=== PATIENT | male | born 1965 | race African-American/Black ===

== ENCOUNTER 2020-05-21 08:46 | Outpatient (CLI) | payer BC, SELFPAY ==
--- NOTE | 2020-05-21 09:11 | ECG_ITS ---
Measurements Intervals [place] Rate: 94 P: 58 MA: 175 QRS: 7 QRSD: 113 T: -2 QT: 365 QTc: 456 Interpretive Statements SINUS RHYTHM INTRAVENTRICULAR CONDUCTION DELAY DELAYED PRECORDIAL R/S TRANSITION BORDERLINE T WAVE ABNORMALITY- ANTEROLAT/INF LEADS BASELINE ARTIFACT- I, AVL BORDERLINE ECG Electronically Signed On 05-21-2020 9:23:32 AIR TRAFFIC CONTROL SUPERVISOR by Alex Dunn D.O.
[2020-05-21 09:21] LABS: Basophils Percent Auto 0.5 % (0.2-1.2); Eosinophils Absolute Auto 0.1 K/mm3 (0-0.3); Eosinophils Percent Auto 1.2 % (0-4.4); Hematocrit 40.9 % (42.0-52.0); Hemoglobin 13.8 g/dL (14.0-18.0); Immature Granulocyte Absolute 0.03 K/mm3 (0.00-0.031); Immature Granulocyte Percent A 0.4 % (0-0.5); Lymphocytes Absolute Auto 1.98 K/mm3 (0.9-3.2); Lymphocytes Percent Auto 26.3 % (18.3-44.2); Mean Corpuscular HGB Conc 33.7 g/dl (32-36); Mean Corpuscular Hemoglobin 28.5 pg (26-34); Mean Corpuscular Volume 84.5 fl (80-100); Mean Platelet Volume 9.8 fl (7.4-10.4); Monocytes Absolute Auto 0.5 K/mm3 (0.1-0.6); Monocytes Percent Auto 6.3 % (2.6-8.5); Neutrophils Absolute Auto 4.9 K/mm3 (1.3-6.7); Neutrophils Percent Auto 65.3 % (45.5-73.1); Platelet Count Result 281 k/mm3 (150-375); Red Blood Count 4.84 M/mm3 (4.6-6.20); Red Cell Distribution Width 13.1 % (11.5-14.5); White Blood Count 7.5 K/mm3 (4.5-10.0)
[2020-05-21 09:34] LABS: Anion Gap 5 mmol/L (8-16); Blood Urea Nitrogen 17 mg/dL (9-20); Calcium 8.6 mg/dL (8.4-10.2); Carbon Dioxide 32 mmol/L (22-30); Chloride 102 mmol/L (98-107); Estimated Glomerular Filt Rate > 60; Glucose 142 mg/dL (75-110); Potassium 3.4 mmol/L (3.4-5.0); Sodium 139 mmol/L (137-145)
== END 2020-05-21 08:47 | disposition home or self-care (01) ==
LOC: ANHLAB 08:51
PROVIDERS: PCP Family Medicine; Visit Provider Surgery
DX: Z01.818 Encounter for other preprocedural examination (principal); I10 Essential (primary) hypertension; I45.9 Conduction disorder, unspecified
CPT/HCPCS: 36415; 80048; 85025; 93005

== ENCOUNTER 2020-05-27 03:57 | Outpatient (CLI) | payer BC, SELFPAY ==
[2020-05-27 16:31] LABS: SARS-CoV-2 RNA PCR Positive
== END 2020-05-27 03:58 | disposition home or self-care (01) ==
LOC: ANHCOVIDDT 03:58
PROVIDERS: PCP Family Medicine; Visit Provider Surgery
DX: U07.1 COVID-19 (principal); Z01.812 Encounter for preprocedural laboratory examination
CPT/HCPCS: C9803; U0003; U0005

== ENCOUNTER 2020-06-26 01:30 | Day surgery (SDC) | payer BC, SELFPAY ==
[2020-05-20 16:35] VITALS: BMI 33.9
--- NOTE | 2020-06-19 14:15 | PC.NURSE ---
PT DENIES ANY CHANGE IN HEALTH OR MEDICATION SINCE INTERVIEW.
--- NOTE | 2020-06-25 09:12 | PM.SD2 ---
Same Day Admit/Disch: HPI History of Present Illness Chief complaint: Righ Inguinal Hernia Narrative: Niranjan Manzo is a 55 year old male who has had a painful right inguinal bulge for well over a year. This is painful with activity. Particularly notice it is painful when he mows his grass. He was seen in the office and is taken to surgery now for repair of a right inguinal hernia. He also gets up to urinate about 3 or 4 times a night and has been started on Flomax a week prior to surgery to hopefully avoid postoperative urinary retention. [facility] Past Medical History Medical History Benign essential HTN History of hypertension Hyperlipidemia Right inguinal hernia Family History Family History Other Diabetes mellitus Hypertension Social History Social History Social History: Smoking status: Never smoker Second hand tobacco smoke exposure: No Alcohol intake: former Substance use: never Substance use type: does not use Living arrangements: with family Gender identity (if verbalized by the patient): Male Spiritual care concerns: No Same Day Admit/Disch: Med Pre-admit Medications Home Medications Medication Instructions Recorded Confirmed Type amlodipine 10 mg-benazepril 20 mg 1 cap PO DAILY #30 cap 04/03/20 06/13/20 Rx capsule atorvastatin 10 mg tablet 10 mg PO DAILY #30 tablet 04/25/20 06/13/20 Rx furosemide 20 mg tablet 20 mg PO QAM #30 tablet 05/29/20 06/26/20 Rx tamsulosin 0.4 mg capsule See Rx Instructions .ROUTE 05/29/20 06/26/20 Rx .COMPLEX #30 cap hydralazine 10 mg tablet 20 mg PO BID #120 tablet 06/05/20 06/26/20 Rx hydrocodone-acetaminophen 1 - 2 tablet PO Q6H PRN #10 tablet 06/26/20 Rx ketorolac 10 mg PO Q6H 4 Days #16 tablet 06/26/20 Rx Exam Const: General: comfortable, no acute distress, alert and awake HENMT: Head: normocephalic and atraumatic Mouth: Yes Normal oral and palatal mucosa present Eyes: Conjunctivae: conjunctivae normal Pupils: Equal, round and reactive pupils present EOM: EOMs intact bilaterally Neck: Neck: normal visual inspection, no lymphadenopathy and nontender Resp: Effort & Inspection: normal respiratory effort Auscultation: clear to auscultation bilaterally Cardio: Rate: regular rate Rhythm: regular rhythm Heart sounds: no gallops, no murmurs and no rubs GI: Inspection: non-distended GI Palp: Yes Soft to palpation, No Tenderness to palpation present (GI), No Hepatomegaly present and No Splenomegaly present : Male General Exam: Yes hernia (Right inguinal bulge, large, pulses with cough) Penis: Yes normal penis Scrotum: testes descended bilaterally and scrotal swelling on the right (Right inguinal hernia extends into the upper scrotum) Testes: Testes normal Skin: Lesions: no lesions Rashes: no rashes Neuro: General: no focal motor deficits and CN's II-XI intact bilaterally Cranial nerves: Yes Equal, round and reactive pupils present, Yes Bilaterally intact EOM present, Yes facial symmetry and Yes Midline tongue present Speech: normal speech Motor exam (neuro): 5/5 motor strength present throughout and Motor abnormalities not present Extrem: General: no clubbing, cyanosis or edema and edema Psych: Affect: normal affect Thought process: Normal thought process present Insight: Good insight present (Psych) DS: Summary Time Spent with Patient Time attestation: Total time spent providing and/or coordinating discharge services: DS: Admitting Diagnosis Admitting Diagnosis Admitting Diagnosis: Symptomatic, reducible right inguinal hernia-plan to repair as an outpatient under local mac anesthesia. The procedure the risks the benefits have been discussed with the patient. All questions were answered. The usual recovery has been discussed. He understands and agrees
[2020-06-26] MEDS: LACTATED RINGERS 1,000 ML 30 ML IV CONT ×2 (06:58→10:45)
[2020-06-26] MEDS: ACETAMINOPHEN 500 MG TABLET 1000 MG PO (06:59)
[2020-06-26] MEDS: KETOROLAC 15 MG/ML VIAL (*BKC) IV PUSH (07:00)
[2020-06-26 07:05] VITALS: BP 113/77; PULSE 69; RESP 16; TEMP 37.1; O2SAT 100
--- NOTE | 2020-06-26 07:30 | WPDANESEPPF ---
Anes - Initial Pre Proc Eval Procedure: Operation Date: 06/26/20 08:30 Proposed Procedures p Right Inguinal Hernia Repair - Ilya Galeano MD Date/Time: 06/26/20 07:30 Surgeon: Ilya Galeano MD Pre Op Diagnosis: Righ Inguinal Hernia Patient Data Age: 55 Gender: M Height: 6 ft Weight: 111.5 kg Last Vital Signs Temp 98.7 F 06/26/20 07:05 Pulse 69 06/26/20 07:05 Resp 16 06/26/20 07:05 BP 113/77 06/26/20 07:05 Pulse Ox 100 06/26/20 07:05 Allergies Allergy/AdvReac Type Severity Reaction Status Date / Time No Known Allergies Allergy Verified 06/26/20 06:11 Home Medications Medication Instructions Recorded Confirmed Type amlodipine 10 mg-benazepril 20 mg 1 cap PO DAILY #30 cap 04/03/20 06/13/20 Rx capsule atorvastatin 10 mg tablet 10 mg PO DAILY #30 tablet 04/25/20 06/13/20 Rx furosemide 20 mg tablet 20 mg PO QAM #30 tablet 05/29/20 06/26/20 Rx tamsulosin 0.4 mg capsule See Rx Instructions .ROUTE 05/29/20 06/26/20 Rx .COMPLEX #30 cap hydralazine 10 mg tablet 20 mg PO BID #120 tablet 06/05/20 06/26/20 Rx Patient hx anesthesia problems: none Family hx anesthesia problems: none PMFSH Past Medical History Medical History Benign essential HTN History of hypertension Hyperlipidemia Right inguinal hernia Family History Family History Other Diabetes mellitus Hypertension Social History Social History Social History: Smoking status: Never smoker Second hand tobacco smoke exposure: No Alcohol intake: former Substance use: never Substance use type: does not use Living arrangements: with family Gender identity (if verbalized by the patient): Male Spiritual care concerns: No Anes - Eval Final PreProcedure Day of Procedure 06/26/20 07:30 Patient weight: obese Heart: regular rate and rhythm Lungs: clear to auscultation Airway: Mallampati scale class III Neurological: alert and oriented Last oral intake: >/= 8 hours ASA classification: III Emergent: no Anesthetic plan: proceed Anesthesia type and monitoring: general GIVS and standard monitoring Informed Consent: The patient's anesthetic plan and its attendant risks and benefits were discussed with the patient/family/POA. Questions were solicited and answers provided to the satisfaction of the patient/family/POA.
--- NOTE | 2020-06-26 07:42 | WPDHPUPDATE1 ---
History and Physical Update Update Date/Time: 06/26/20 07:42 History and Physical has been reviewed, including an updated exam of the patient. There are NO changes in the patient's condition. Risks, benefits, and alternatives have been discussed and questions answered. Patient agrees to proceed with procedure.
[2020-06-26] MEDS: ceFAZolin 2 GM/D5W 50 ML 2 GM/50 ML BAG IVPB (08:47)
[2020-06-26] MEDS: BUPIVACAINE HCL 0.5% PF 30 ML VIAL 10 ML INFILTRATE (09:02)
[2020-06-26 10:45] VITALS: BP 104/51; PULSE 71; RESP 16
--- NOTE | 2020-06-26 11:01 | PM.PROC ---
Procedure Note - Detailed Date of procedure: 06/26/20 Pre-op diagnosis: Righ Inguinal Hernia Right inguinal hernia Post-op diagnosis: same (Indirect hernia) Procedure performed: Repair of right inguinal hernia with 8 cm Parietex hernia mesh system Description of procedure: The patient was taken to surgery and IV sedation was administered. The right groin and genitalia were prepped and draped. Proposed incision was marked on the skin. Local was infiltrated into the skin and the deeper subcutaneous tissues. Incision was made and deepened through the subcutaneous. Crossing veins were cauterized and divided. Dissection was carried through Marques's fascia down to the external oblique aponeurosis. The aponeurosis was exposed as was the external ring. Additional local anesthesia was infiltrated deep to the aponeurosis in the area of the spermatic cord and inguinal canal contents. The aponeurosis was opened laterally and extended medially through the external ring. The leaves of the aponeurosis were dissected free from the spermatic cord. The ileoinguinal nerve was carefully preserved throughout the dissection and was left attached to the spermatic cord. The cord was then mobilized medially on a Dawson drain. The cord was dissected back to the internal ring. Dissection was then carried out in the anteromedial spermatic cord. The hernia sac was found and dissected. The hernia sac and its contents were quite large. It was intimately associated with the spermatic cord. There was a lot of lipomatous tissue in the cord as well. Dissection of the hernia sac was difficult due to its chronicity and large size. With a combination of blunt and sharp dissection, however, I was able to dissect the sac back to the internal ring and to a high dissection. I then reduced the hernia into the abdomen. This was difficult due to the large size of the hernia and a relatively smaller opening in the internal ring. Once it was reduced, I placed a Ray-Jacqueline sponge in the internal ring to keep it in position. I then set about dissecting free the lipomatous tissue and some cremasteric fibers that were an obstacle to creating a good repair. The spermatic cord was fully mobilized and skeletonized. Blood supply to the right testicle was carefully preserved. Eventually enough of the distorted inguinal canal tissues were either removed or dissected such that the repair could be done effectively. An 8 centimeter Parietex [place] was chosen. It was folded to form a plug. It was placed in the defect. The edges were sutured to the transversalis fascia with interrupted 3 0 Vicryl suture. The hernia defect was then partially closed with some additional 3 0 Vicryl suture. Patch was then cut to the appropriate size and placed over the inguinal canal floor. The lateral leaves were passed beyond the cord. The cord and ileoinguinal nerve were then laid over the patch. The external oblique aponeurosis was closed with interrupted 3 0 Vicryl suture. Marques's fascia was closed with interrupted 3 0 Vicryl suture. The subcutaneous was closed with interrupted 4 0 Vicryl suture. Four 0 Vicryl subcuticular skin sutures were placed. The skin was closed finally with a running 4 0 Monocryl skin suture. The wound was dressed with Exofin surgical adhesive. The patient was awakened and taken to recovery in good condition. Sponge and needle counts were correct x2. Implants: 8 cm Parietex hernia repair system Anesthesia: MAC and local (0.5% Marcaine with Exparel) Surgeon: Ilya Galeano MD Pararescue Craftsman: Mari GONZALEZ Estimated blood loss (mL): 5 Drains: No Packing: No Pathology: none sent Complications: None Condition: stable Disposition: PACU Findings: Large indirect inguinal hernia. No sliding hernia was noted.
[2020-06-26 11:34] VITALS: BP 95/64; PULSE 52; RESP 18
[2020-06-26] MEDS: oxyCODONE HCL (*CRX) 5 MG TAB IR PO (11:48)
[2020-06-26 12:00] VITALS: BP 112/79; PULSE 46; RESP 18
[2020-06-26 12:15] VITALS: BP 111/82; PULSE 47; RESP 18
== END 2020-06-26 12:23 | disposition home or self-care (01) ==
PROVIDERS: PCP Family Medicine; Visit Provider Surgery
PROC: (CPT 49505; principal; 2020-06-26 08:30)
DX: K40.90 Unilateral inguinal hernia, without obstruction or gangrene, not specified as recurrent (principal); R35.1 Nocturia; I10 Essential (primary) hypertension; E78.5 Hyperlipidemia, unspecified
CPT/HCPCS: 49505; A9270; C1781; C9290; J0690; J1885; J2250; J2405; J2704; J3010; J7120

== ENCOUNTER 2020-06-30 19:53 | Emergency (ER) | payer BC, SELFPAY ==
--- NOTE | ~2020-06-30 | CT_ITS ---
EXAMINATION: CT abdomen pelvis w con EXAM DATE: 06/30/2020 21:02 INDICATION: Post surgery swelling , right groin pain. TECHNIQUE: Spiral CT of the abdomen and pelvis was performed following intravenous injection of 100 m L Omnipaque 350. Axial, coronal and sagittal images were reviewed. The dose-length product (DLP) fo r this examination was 1469.61 mGy-cm. The exposure was tailored according to patient size (auto mA exposure control), and iterative reconstruction (ASIR) was used as additional dose reduction techniqu e. There is no prior study for comparison. FINDINGS: There is inflammation in the right inguinal canal, with some tiny foci of gas present consi stent with recent surgery. Deep to this in the right lower quadrant there is a circumscribed region o f fat measuring about 7 x 5 cm, with swirled appearance, twisting of the vascularity within, could be sizable region of twisted omentum or other intra-abdominal fat and/or early fat necrosis. Contiguous and immediately lateral to this is a small pocket of gas and fluid measuring about 2 x 3 cm. Gonadal vasculature is also contiguous to both of these described findings. Focal left-sided skin thickening , could be a trocar insertion site. The liver, spleen, adrenal glands and pancreas are unremarkable. Gallbladder is unremarkable. No bi liary obstruction. Portal and splenic veins are patent. Kidneys enhance symmetrically. There is no hydronephrosis. The prostate is unremarkable. The bladder is unremarkable. There is no retroperi toneal or pelvic lymphadenopathy. There are no findings to suggest appendicitis. The stomach and small bowel are unremarkable. There is expected amount of colonic stool. No free intraperitoneal gas. The heart is normal in size. T here are no pericardial or pleural effusions. The lung bases are unremarkable. There are no osteobl astic or osteolytic lesions identified. IMPRESSION: 1. Right inguinal surgical changes, with some foci of gas, extensive inguinal inflammation and small gas fluid pocket deep to the canal. 2. Right lower quadrant circumscribed region of fat with twisted appearance, could be focal region o f twisted omentum or other intra-abdominal fat, developing fat necrosis. Reviewed, dictated and finalized at location A. IC PROCESS ENGINEER IMPRESSION: 1. Right inguinal surgical changes, with some foci of gas, extensive inguinal inflammation and small gas fluid pocket deep to the canal. 2. Right lower quadrant circumscribed region of fat with twisted appearance, c ould be focal region of twisted omentum or other intra-abdominal fat, developin g fat necrosis.
[2020-06-30 19:54] VITALS: BP 161/100; PULSE 84; RESP 16; TEMP 36.7; O2SAT 100
--- NOTE | 2020-06-30 19:58 | ED.GENADULT ---
HPI - General Adult General Chief complaint: Unspecified Stated complaint: swelling in groin, recent hernia surgery. Time Seen by Provider: 06/30/20 20:09 History of Present Illness HPI narrative: Patient is a 55-year-old gentleman who presents the emergency department with chief complaint of postoperative swelling. Patient had a inguinal hernia repair on the in our facility and the patient noticed today that his inguinal area and the scrotum was swollen up. Patient states he had no fever no drainage from the area and the patient was concerned states that he is really not having much pain in the area states that he was just concerned about the swelling. Patient denies difficulty urinating denies difficulty defecating. Related Data Allergies Allergy/AdvReac Type Severity Reaction Status Date / Time No Known Allergies Allergy Verified 06/26/20 06:11 Review of Systems Review of Systems: Narrative: A 10 system review of systems was completed on the patient and is negative except for what is stated in the HPI. Nursing and ancillary documentation was reviewed. [facility] Past Medical History Medical History Benign essential HTN History of hypertension Hyperlipidemia Right inguinal hernia Family History Family History Other Diabetes mellitus Hypertension Social History Social History Social History: Smoking status: Never smoker Second hand tobacco smoke exposure: No Alcohol intake: former Substance use: never Substance use type: does not use Gender identity (if verbalized by the patient): Male Spiritual care concerns: No Exam Narrative: Exam Narrative: GENERAL: Well-appearing, well-nourished, and in no acute distress. HEAD: Normocephalic, atraumatic. EYES: PERRLA and EOMI. ENT: Nares clear, no rhinorrhea or epistaxis. Mucous membranes moist. NECK: Supple. CHEST: Clear to auscultation. No respiratory distress. HEART: Regular rate and rhythm. No murmur heard. Normal peripheral pulses. ABDOMEN: Soft, nontender, nondistended, normal active bowel sounds. There is swelling in the right inguinal region at the location of a surgical incision the incision showing signs of healing without evidence of erythema without evidence of drainage or wound well approximated. There is swelling that is present in the scrotum. EXTREMITIES: Normal range of motion. No edema. SKIN: Warm, dry, no rash. NEURO: No focal deficits. Alert and oriented x3. PSYCH: Normal mood and affect. Course Course Emergency Course: Patient's laboratory studies showed a normal white blood cell count and normal lactic acid. CT scan of the abdomen pelvis showed inflammation in the inguinal canal region and also some of the fat in the area underneath the repair was showing some inflammation. The case was discussed with Dr. Lilly who is on-call for general surgery after review of the surgical record it was felt that this is most likely postoperative changes due to the difficulty of reducing the hernia. The patient is currently asymptomatic other than the swelling patient was instructed to keep the area clean do daily temperature checks twice daily. And to follow-up with Dr. Galeano Vital Signs Vital signs: Vital Signs Temperature 36.7 C 06/30/20 19:54 Pulse Rate 84 06/30/20 19:54 Respiratory Rate 16 06/30/20 19:54 Blood Pressure 161/100 H 06/30/20 19:54 Pulse Oximetry 100 06/30/20 19:54 Temperature 36.7 C 06/30/20 19:54 Pulse Rate 80 06/30/20 21:50 Respiratory Rate 18 06/30/20 21:50 Blood Pressure 130/91 H 06/30/20 21:50 Pulse Oximetry 99 06/30/20 21:50 Medical Decision Making Vital Signs Vital Signs: Vital Signs Temperature 36.7 C 06/30/20 19:54 Pulse Rate 84 06/30/20 19:54 Respiratory Rate 1
[2020-06-30 20:51] LABS: Basophils Absolute Auto 0.1 K/mm3 (0.0-0.1); Basophils Percent Auto 0.7 % (0.2-1.2); Eosinophils Absolute Auto 0.2 K/mm3 (0-0.3); Eosinophils Percent Auto 3.2 % (0-4.4); Hematocrit 37.3 % (42.0-52.0); Hemoglobin 12.6 g/dL (14.0-18.0); Immature Granulocyte Absolute 0.02 K/mm3 (0.00-0.031); Immature Granulocyte Percent A 0.3 % (0-0.5); Lymphocytes Absolute Auto 2.06 K/mm3 (0.9-3.2); Lymphocytes Percent Auto 27.7 % (18.3-44.2); Mean Corpuscular HGB Conc 33.8 g/dl (32-36); Mean Corpuscular Hemoglobin 29.2 pg (26-34); Mean Corpuscular Volume 86.5 fl (80-100); Mean Platelet Volume 9.5 fl (7.4-10.4); Monocytes Absolute Auto 0.6 K/mm3 (0.1-0.6); Monocytes Percent Auto 7.7 % (2.6-8.5); Neutrophils Absolute Auto 4.5 K/mm3 (1.3-6.7); Neutrophils Percent Auto 60.4 % (45.5-73.1); Platelet Count Result 315 k/mm3 (150-375); Red Blood Count 4.31 M/mm3 (4.6-6.20); Red Cell Distribution Width 13.3 % (11.5-14.5); White Blood Count 7.5 K/mm3 (4.5-10.0)
--- NOTE | 2020-06-30 20:52 | PC.NURSE ---
Patient taken to CT.
[2020-06-30 21:03] LABS: Alanine Aminotransferase 27 U/L (4-50); Alkaline Phosphatase 57 U/L (38-126); Anion Gap 6 mmol/L (8-16); Aspartate Amino Transferase 33 U/L (17-59); Bilirubin,Total 0.4 mg/dL (0.2-1.3); Blood Urea Nitrogen 19 mg/dL (9-20); Calcium 8.7 mg/dL (8.4-10.2); Carbon Dioxide 29 mmol/L (22-30); Chloride 104 mmol/L (98-107); Estimated CRCL calculation 95 ml/min; Estimated Glomerular Filt Rate > 60; Glucose 123 mg/dL (75-110); Potassium 3.2 mmol/L (3.4-5.0); Sodium 139 mmol/L (137-145)
[2020-06-30 21:04] LABS: Lactic Acid Reflex 1.1 mmol/L (0.7-2.1)
[2020-06-30 21:50] VITALS: BP 130/91; PULSE 80; RESP 18; O2SAT 99
[2020-06-30 23:45] LABS: Estimated CRCL calculation 105 ml/min; Estimated Glomerular Filt Rate > 60
== END 2020-06-30 22:54 | disposition home or self-care (01) ==
PROVIDERS: Emergency Provider Emergency Medicine; PCP Family Medicine
DX: G89.18 Other acute postprocedural pain (principal); R10.9 Unspecified abdominal pain; I10 Essential (primary) hypertension; E78.5 Hyperlipidemia, unspecified
CPT/HCPCS: 36415; 74177; 80053; 83605; 85025; 99284; Q9967

== ENCOUNTER 2021-02-21 09:30 | Outpatient (CLI) | payer OTHER, SELFPAY ==
[2021-02-21 10:29] LABS: Basophils Percent Auto 0.5 % (0.2-1.2); Eosinophils Absolute Auto 0.1 K/mm3 (0-0.3); Eosinophils Percent Auto 1.1 % (0-4.4); Hemoglobin 15.4 g/dL (14.0-18.0); Immature Granulocyte Absolute 0.03 K/mm3 (0.00-0.031); Immature Granulocyte Percent A 0.4 % (0-0.5); Lymphocytes Absolute Auto 1.93 K/mm3 (0.9-3.2); Lymphocytes Percent Auto 26.3 % (18.3-44.2); Mean Corpuscular Hemoglobin 29.8 pg (26-34); Mean Corpuscular Volume 85.3 fl (80-100); Mean Platelet Volume 9.8 fl (7.4-10.4); Monocytes Absolute Auto 0.4 K/mm3 (0.1-0.6); Neutrophils Absolute Auto 4.8 K/mm3 (1.3-6.7); Neutrophils Percent Auto 65.7 % (45.5-73.1); Platelet Count Result 301 k/mm3 (150-375); Red Blood Count 5.16 M/mm3 (4.6-6.20); Red Cell Distribution Width 12.9 % (11.5-14.5); White Blood Count 7.4 K/mm3 (4.5-10.0)
[2021-02-21 11:59] LABS: Thyroid Stimulating Hormone Reflex 0.651 uIU/mL (0.465-4.68)
[2021-02-21 12:00] LABS: Alanine Aminotransferase 28 U/L (4-50); Albumin Level 4.7 g/dL (3.5-5.1); Alkaline Phosphatase 69 U/L (38-126); Anion Gap 10 mmol/L (8-16); Aspartate Amino Transferase 29 U/L (17-59); Bilirubin,Total 0.8 mg/dL (0.2-1.3); Blood Urea Nitrogen 14 mg/dL (9-20); Calcium 9.2 mg/dL (8.4-10.2); Carbon Dioxide 26 mmol/L (22-30); Chloride 104 mmol/L (98-107); Cholesterol 272 mg/dL (0-200); Estimated Glomerular Filt Rate > 60; Glucose 109 mg/dL (65-110); HDL Direct 44 mg/dL; Potassium 3.5 mmol/L (3.4-5.0); Sodium 140 mmol/L (137-145); Triglycerides 148 mg/dL (<150)
[2021-02-21 12:11] LABS: LDL Cholesterol Direct 168 mg/dL
[2021-02-21 12:30] LABS: Prostate Specific Antigen 0.7 ng/mL (< OR = 4.0)
[2021-02-21 13:36] LABS: Hemoglobin A1C 5.5 % (<5.7)
== END 2021-02-21 09:31 | disposition home or self-care (01) ==
LOC: ANHLAB 09:33
PROVIDERS: PCP Family Medicine; Visit Provider Physician Assistant
DX: R73.01 Impaired fasting glucose (principal); Z13.220 Encounter for screening for lipoid disorders; I10 Essential (primary) hypertension; R35.1 Nocturia; Z12.5 Encounter for screening for malignant neoplasm of prostate
CPT/HCPCS: 36415; 80053; 80061; 83036; 84153; 84443; 85025; G0103